=== PATIENT | female | born 1960 | race Caucasian/White ===

== ENCOUNTER 2018-07-23 13:37 | Emergency (ER) | payer OTHER ==
[~2018-07-23] VITALS: Ht 170.2 cm; Wt 67.2 kg
[2018-07-23 13:42] VITALS: BP 121/91
--- NOTE | 2018-07-23 13:54 | NUR ---
PATIENT AMBULATED TO BED 2 AT THIS TIME.
--- NOTE | 2018-07-23 14:02 | NUR ---
57 YO F BIB FAMILY W/ C/O LEFT SHOULDER PAIN X 1 MONTH. PT DENIES INJURY. SEEN AT [facility] [place] SAME THING WITHIN PAST 11 DAYS. DX TENDONITIS. WAS GIVEN FLEXERIL AND TRAMADOL STATES THEY ARE GONE. DENIES N/V/FEVER. SKIN IS INTACT, PINK/WARM/DRY; +CMS. AAOX4, PERRL, WITH EVEN AND STEADY GAIT; LUNGS CLEAR BL, BREATHING UNLABORED; PT STATES 10/10 PAIN AT THIS TIME; VSS; PATIENT POSITIONED FOR COMFORT; HOB ELEVATED; BEDRAILS UP X2; BED DOWN. HX SEASONAL ALLERGIES RX DENIES
[2018-07-23] MEDS ORDERED: KETOROLAC 60 MG/2 ML VIAL IM ONE (15:35)
[2018-07-23] MEDS ORDERED: CYCLOBENZAPRINE 10 MG TAB PO ONE (15:35)
[2018-07-23 16:00] VITALS: BP 121/91
--- NOTE | 2018-07-23 16:00 | NUR ---
Patient discharged with v/s stable. Written and verbal after care instructions given and explained. Patient alert, oriented and verbalized understanding of instructions. Ambulatory with steady gait. All questions addressed prior to discharge. ID band removed. Patient advised to follow up with PMD. Rx of FLEXIRIL given. Patient educated on indication of medication including possible reaction and side effects. Opportunity to ask questions provided and answered.
== END 2018-07-23 16:00 | disposition home or self-care (01) ==
LOC: MED 13:37
DX: M75.92 Shoulder lesion, unspecified, left shoulder (principal); Z88.6 Allergy status to analgesic agent; Z88.5 Allergy status to narcotic agent
CPT/HCPCS: 73020; 96372; 99283; J1885

== ENCOUNTER 2018-09-02 11:07 | Emergency (ER) | payer OTHER ==
[~2018-09-02] VITALS: Ht 170.2 cm; Wt 68.0 kg
--- NOTE | 2018-09-02 11:26 | NUR ---
Patient being evaluated by physician at bedside.
[2018-09-02 11:29] VITALS: BP 124/91
[2018-09-02] MEDS ORDERED: NACL 0.9% 1,000 ML IV ONE (11:30)
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
[2018-09-02 11:50] LABS: BASOPHILS # (AUTO) 0.1 K/uL (0.00-0.22); EOSINOPHILS % (AUTO) 0.4 % (0.0-4.0); HEMATOCRIT 43.8 % (36-48); HEMOGLOBIN 14.2 g/dL (12.0-16.0); LYMPHOCYTES % (AUTO) 29.5 % (20.5-51.1); MEAN CORPUSCULAR HEMOGLOBIN 27 pg (27-31); MEAN CORPUSCULAR HGB CONC 32 g/dL (33-37); MONOCYTES # (AUTO) 0.4 K/uL (0.8-1.0); MONOCYTES % (AUTO) 5.3 % (1.7-9.3); NEUTROPHILS # (AUTO) 4.2 K/uL (1.8-7.7); NEUTROPHILS % (AUTO) 63.8 % (42.2-75.2); PLATELET COUNT (AUTO) 268 K/uL (140-450); RED BLOOD CELL COUNT(AUTO) 5.22 MIL/uL (4.20-5.40); RED CELL DISTRIBUTION WIDTH 13.7 % (11.6-13.7); WHITE BLOOD COUNT (AUTO) 6.6 K/uL (4.8-10.8)
[2018-09-02 12:07] LABS: ALBUMIN 3.7 g/dL (3.4-5.0); ANION GAP 9.9 (8-16); ASPARTATE AMINOTRANSFERASE 12 U/L (15-37); CARBON DIOXIDE 29.6 mmol/L (21-32); CHLORIDE 104 mmol/L (98-107); CREATININE 0.7 mg/dL (0.6-1.3); GFR ARICAN-AMERICAN 110 mL/min (>90); GLUCOSE 109 mg/dL (74-106); POTASSIUM 3.5 mmol/L (3.5-5.1); SALICYLATE 3.2 mg/dL (2.8-20.0); SODIUM SERUM 140 mmol/L (136-145); TOTAL BILIRUBIN 0.3 mg/dL (0.0-1.0); UREA NITROGEN, BLOOD 10 mg/dL (7-18)
[2018-09-02 12:47] LABS: ACETAMINOPHEN < 0.5 ug/ml (10-30)
[2018-09-02 13:25] LABS: BILIRUBIN,URINE 1+ (NEGATIVE); BLOOD, URINE 1+ (NEGATIVE); COLOR,URINE YELLOW (YELLOW); LEUKOCYTE ESTERASE ,URINE NEGATIVE (NEGATIVE); NITRITE, URINE NEGATIVE (NEGATIVE); UGLUCOSE NEGATIVE (NEGATIVE)
--- NOTE | 2018-09-02 13:33 | NUR ---
patient sitting up in bed with no needs stated at this time.
[2018-09-02 13:34] LABS: BARBITURATE, URINE NEG. ng/ml (NEG <=200); BENZODIAZEPINE, URINE NEG. ng/mL (NEG <=200); CANNABINOID, URINE POS. ng/mL (NEG <=50); COCAINE, URINE NEG. ng/mL (NEG <=300); OPIATE, URINE NEG. ng/mL (NEG <=2000); PHENCYCLIDINE SCREEN,URINE NEG. ng/mL (NEG <=25)
[2018-09-02 13:35] LABS: APPEARANCE,URINE CLEAR (CLEAR)
[2018-09-02 13:36] LABS: RBC,URINE 0-5 /HPF (0-5); WBC,URINE 0-5 /HPF (0-5)
--- NOTE | 2018-09-02 14:25 | NUR ---
Patient in bed and comfortable at this time.
[2018-09-02 14:59] VITALS: BP 127/90
== END 2018-09-02 14:50 | disposition home or self-care (01) ==
LOC: MED 11:07
DX: F22 Delusional disorders (principal); F41.9 Anxiety disorder, unspecified; Z88.6 Allergy status to analgesic agent; Z88.5 Allergy status to narcotic agent
CPT/HCPCS: 36415; 80053; 80305; 81001; 82550; 85025; 99283; G0480; G0482; J7030

== ENCOUNTER 2018-09-21 10:01 | Emergency (ER) | payer OTHER ==
[~2018-09-21] VITALS: Ht 167.6 cm; Wt 64.9 kg
[2018-09-21 10:04] VITALS: BP 131/75
--- NOTE | 2018-09-21 10:09 | NUR ---
Patient ambulated to bed 11. RN evaluating patient at bedside.
--- NOTE | 2018-09-21 10:17 | NUR ---
Note undone in EDM - 09/21/18 at 1021 by [email or web address] PT BIB SELF TO THE ED WITH THE CHIEF C/O NUMBNESS ON LEFT ARM SINCE A MONTH AND LEFT EAR BLEEDING SINCE LAST NIGHT. MOVES ARM FREELY. + CIRCULATION, +SENSATION. NO ACTIVE BLEEDING FROM LEFT EAR AT THIS TIME. NO SWELLING OR REDNESS NOTED. DRY CRUSTS BLOOD NOTED INSIDE EAR. DENIES ANY PAIN AT THIS TIME. DENIES FEVER. DENIES ANY OTHER PROBLEM AT THIS TIME. ER AWARE.
--- NOTE | 2018-09-21 10:29 | NUR ---
PT BEING EVALUATED BY ER AT THIS TIME.
--- NOTE | 2018-09-21 10:44 | NUR ---
EKG BEING DONE.
--- NOTE | 2018-09-21 11:04 | NUR ---
Dr. Maciel re-evaluating patient at bedside.
[2018-09-21 11:44] VITALS: BP 122/68
--- NOTE | 2018-09-21 11:45 | NUR ---
Patient discharged with v/s stable. Written and verbal after care instructions given and explained. Patient verbalized understanding. Ambulatory with steady gait. All questions addressed prior to discharge. Advised to follow up with PMD.
== END 2018-09-21 11:45 | disposition home or self-care (01) ==
LOC: MED 10:01
DX: S00.412A Abrasion of left ear, initial encounter (principal); M79.602 Pain in left arm; J45.909 Unspecified asthma, uncomplicated; F41.9 Anxiety disorder, unspecified; Z88.6 Allergy status to analgesic agent; Z88.5 Allergy status to narcotic agent; X58.XXXA Exposure to other specified factors, initial encounter; Y93.89 Activity, other specified; Y92.89 Other specified places as the place of occurrence of the external cause; Y99.8 Other external cause status
CPT/HCPCS: 93005; 99283

== ENCOUNTER 2018-10-23 16:16 | Emergency (ER) | payer OTHER ==
[~2018-10-23] VITALS: Ht 165.1 cm; Wt 67.6 kg
[2018-10-23 16:20] VITALS: BP 139/64
--- NOTE | 2018-10-23 16:33 | NUR ---
PATIENT AMBULATED TO BED #10
[2018-10-23] MEDS ORDERED: NACL 0.9% 1,500 ML IV SCH (16:47)
[2018-10-23] MEDS ORDERED: methylPREDNISolone SS 125 MG/2 ML VIAL IVP ONE (16:50)
[2018-10-23] MEDS ORDERED: diphenhydrAMINE 50 MG/ML VIAL IVP ONE (16:50)
[2018-10-23] MEDS ORDERED: LEVOFLOXACIN 500 MG TAB PO ONE (16:50)
[2018-10-23] MEDS ORDERED: ALBUTEROL SULFATE/IPRATROPIU 3 ML SOL IH ONE (16:50)
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
--- NOTE | 2018-10-23 17:10 | NUR ---
Breathing treatment administered at bedside by respiratory therapist.
[2018-10-23 17:33] LABS: BASOPHILS % (AUTO) 0.4 % (0.0-2.0); EOSINOPHILS # (AUTO) 0.2 K/uL (0-0.4); EOSINOPHILS % (AUTO) 2.1 % (0.0-4.0); HEMATOCRIT 44.9 % (36-48); HEMOGLOBIN 14.8 g/dL (12.0-16.0); LYMPHOCYTES % (AUTO) 25.2 % (20.5-51.1); MEAN CORPUSCULAR HEMOGLOBIN 28 pg (27-31); MEAN CORPUSCULAR HGB CONC 33 g/dL (33-37); MEAN CORPUSCULAR VOLUME 85.2 fL (80-94); MONOCYTES # (AUTO) 0.4 K/uL (0.8-1.0); MONOCYTES % (AUTO) 4.6 % (1.7-9.3); NEUTROPHILS # (AUTO) 5.5 K/uL (1.8-7.7); NEUTROPHILS % (AUTO) 67.7 % (42.2-75.2); PLATELET COUNT (AUTO) 271 K/uL (140-450); RED BLOOD CELL COUNT(AUTO) 5.27 MIL/uL (4.20-5.40); RED CELL DISTRIBUTION WIDTH 13.9 % (11.6-13.7); WHITE BLOOD COUNT (AUTO) 8.1 K/uL (4.8-10.8)
--- NOTE | 2018-10-23 17:42 | NUR ---
bench repair technician at bedside.
[2018-10-23 17:55] LABS: MAGNESIUM 2.1 mg/dL (1.8-2.4)
[2018-10-23 17:56] LABS: ANION GAP 12.7 (8-16); CARBON DIOXIDE 28.8 mmol/L (21-32); CREATININE 0.7 mg/dL (0.6-1.3); POTASSIUM 3.5 mmol/L (3.5-5.1)
[2018-10-23 18:02] LABS: ALBUMIN 3.8 g/dL (3.4-5.0); TOTAL BILIRUBIN 0.2 mg/dL (0.0-1.0)
--- NOTE | 2018-10-23 18:03 | NUR ---
CONTINUES TO WAIT FOR ALL DIAGNOSTIC RESULTS---DENIES CP OR SOB AT THIS TIME.
[2018-10-23 18:24] LABS: APPEARANCE,URINE CLEAR (CLEAR); BILIRUBIN,URINE NEGATIVE (NEGATIVE); BLOOD, URINE 1+ (NEGATIVE); COLOR,URINE YELLOW (YELLOW); LEUKOCYTE ESTERASE ,URINE NEGATIVE (NEGATIVE); NITRITE, URINE NEGATIVE (NEGATIVE); UGLUCOSE NEGATIVE (NEGATIVE)
[2018-10-23 18:30] LABS: WBC,URINE 0-5 /HPF (0-5)
[2018-10-23 18:47] LABS: BARBITURATE, URINE NEG. ng/ml (NEG <=200); BENZODIAZEPINE, URINE NEG. ng/mL (NEG <=200); CANNABINOID, URINE POS. ng/mL (NEG <=50); COCAINE, URINE NEG. ng/mL (NEG <=300); OPIATE, URINE NEG. ng/mL (NEG <=2000); PHENCYCLIDINE SCREEN,URINE NEG. ng/mL (NEG <=25)
[2018-10-23 18:58] VITALS: BP 115/59
--- NOTE | 2018-10-23 18:59 | NUR ---
Patient discharged with v/s stable. Written and verbal after care instructions given and explained. Patient alert, oriented and verbalized understanding of instructions. Ambulatory with steady gait. All questions addressed prior to discharge. ID band removed. Patient advised to follow up with PMD. Rx of PROMETHAZINE/AZITHROMYCIN given. Patient educated on indication of medication including possible reaction and side effects. Opportunity to ask questions provided and answered.
== END 2018-10-23 18:57 | disposition home or self-care (01) ==
LOC: MED 16:16
DX: J45.909 Unspecified asthma, uncomplicated (principal); F12.10 Cannabis abuse, uncomplicated; F20.9 Schizophrenia, unspecified; Z88.5 Allergy status to narcotic agent; Z88.6 Allergy status to analgesic agent
CPT/HCPCS: 36415; 36600; 71045; 80053; 80305; 81001; 81025; 82803; 83605; 83735; 83880; 84484; 85025; 85379; 87040; 87086; 93005; 94640; 96374; 96375; 99284; G0482; J1200; J2930; J7030; J7620; Q0092

== ENCOUNTER 2020-04-16 08:28 | Emergency (ER) | payer OTHER ==
[~2020-04-16] VITALS: Ht 167.6 cm; Wt 59.0 kg
[2020-04-16 08:34] VITALS: BP 122/76
--- NOTE | 2020-04-16 08:43 | NUR ---
Patient ambulated to bed 2. RN evaluating patient at bedside.
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
--- NOTE | 2020-04-16 08:53 | NUR ---
DR SLAUGHTER AT BEDSIDE EVALUATING
--- NOTE | 2020-04-16 08:55 | NUR ---
PT TO CT SCAN [facility] .
--- NOTE | 2020-04-16 09:02 | NUR ---
PT BACK FROM [facility] VIA WHEEL CHAIR.
[2020-04-16] MEDS ORDERED: MECLIZINE 25 MG TAB PO ONE (09:05)
--- NOTE | 2020-04-16 09:25 | NUR ---
pt comfortable in bed with side rail up x1 and lock to lowest position .
--- NOTE | 2020-04-16 09:36 | NUR ---
dr benitez at bedside reevaluating pt.
--- NOTE | 2020-04-16 09:47 | NUR ---
gave sandwich and apple juice to pt . pt in bed still eating .
[2020-04-16 10:07] VITALS: BP 122/76
--- NOTE | 2020-04-16 10:08 | NUR ---
Patient discharged with v/s stable. Written and verbal after care instructions given and explained regarding vertigo. Patient alert, oriented and verbalized understanding of instructions. Ambulatory with steady gait. All questions addressed prior to discharge. ID band removed. Patient advised to follow up with PMD. Rx of meclizine given. Patient educated on indication of medication including possible reaction and side effects. Opportunity to ask questions provided and answered.
== END 2020-04-16 10:08 | disposition home or self-care (01) ==
LOC: MED 08:28
DX: H81.10 Benign paroxysmal vertigo, unspecified ear (principal); F17.200 Nicotine dependence, unspecified, uncomplicated; J45.909 Unspecified asthma, uncomplicated; Z88.5 Allergy status to narcotic agent; Z88.6 Allergy status to analgesic agent
CPT/HCPCS: 70450; 99284; J8597

== ENCOUNTER 2021-05-18 10:38 | Emergency (ER) | payer OTHER ==
[~2021-05-18] VITALS: Ht 162.6 cm; Wt 67.6 kg
[2021-05-18 10:43] VITALS: BP 147/84
--- NOTE | 2021-05-18 10:54 | NUR ---
PT AMBULATED TO ER BED 2
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
--- NOTE | 2021-05-18 12:00 | NUR ---
ERMD IN ROOM ASSESSING PT.
--- NOTE | 2021-05-18 12:09 | NUR ---
PT REFUSING LABS OR ANY TESTING DONE AT THIS TIME. PT STATES "I AM JUST GOING TO GO HOME, I DONT WANT ANYTHING DONE." ERMD MADE AWARE. ERMD SPOKE WITH PT, PT STATES SHE STILL WILL BE LEAVING.
--- NOTE | 2021-05-18 12:20 | NUR ---
Patient discharged with v/s stable. Written and verbal after care instructionsABOUT VARICOSE VEINS given and explained. Patient verbalized understanding. Ambulatory with steady gait. All questions addressed prior to discharge. Advised to follow up with PMD.
== END 2021-05-18 12:20 | disposition home or self-care (01) ==
LOC: MED 10:38
DX: L20.9 Atopic dermatitis, unspecified (principal); R10.9 Unspecified abdominal pain; G89.29 Other chronic pain; J45.909 Unspecified asthma, uncomplicated; Z88.5 Allergy status to narcotic agent; Z88.8 Allergy status to other drugs, medicaments and biological substances
CPT/HCPCS: 99281

== ENCOUNTER 2022-07-01 12:16 | Emergency (ER) | payer OTHER ==
[~2022-07-01] VITALS: Ht 167.6 cm; Wt 70.3 kg
--- NOTE | 2022-07-01 12:26 | NUR ---
CALLED IN LOBBY, NO ANSWER
[2022-07-01 12:46] VITALS: BP 115/59
--- NOTE | 2022-07-01 12:49 | NUR ---
PT AMBULATED TO LOBBY
--- NOTE | 2022-07-01 13:16 | NUR ---
61/F WALKED IN C/O LEFT SIDED NECK PAIN RADIATING TO LEFT SHOULDER ONSET 06/15/22. PT REPORTS LIFTING HEAVY OBJECT BACK IN 06/15/22. AAO4, AMBULATORY, VITALS STABLE, NO ACUTE DISTRESS NOTED PMH: DEPRESSION, ANXIETY
[2022-07-01] MEDS ORDERED: KETOROLAC 30 MG/ML VIAL IM ONE (13:30)
--- NOTE | 2022-07-01 13:44 | NUR ---
PT PLACED IN LEFT SHOULDER SLING
[2022-07-01] MEDS ORDERED: IBUP-2213 PO (13:58)
[2022-07-01] MEDS ORDERED: CYCL-711 PO (13:58)
[2022-07-01] MEDS ORDERED: LID5T TP (13:58)
--- NOTE | 2022-07-01 14:44 | NUR ---
#1 call: no answer in lobby / outside ER lobby.
--- NOTE | 2022-07-01 14:49 | NUR ---
#2: No answer in lobby/outside ER lobby
--- NOTE | 2022-07-01 15:15 | NUR ---
LEFT PRIOR TO DC
== END 2022-07-01 15:15 | disposition home or self-care (01) ==
LOC: MED 12:16
DX: S16.1XXA Strain of muscle, fascia and tendon at neck level, initial encounter (principal); M25.512 Pain in left shoulder; F41.9 Anxiety disorder, unspecified; F32.9 Major depressive disorder, single episode, unspecified; J45.909 Unspecified asthma, uncomplicated; Z88.6 Allergy status to analgesic agent; Z88.5 Allergy status to narcotic agent; Z79.899 Other long term (current) drug therapy; X58.XXXA Exposure to other specified factors, initial encounter; Y93.89 Activity, other specified; Y92.89 Other specified places as the place of occurrence of the external cause; Y99.8 Other external cause status
CPT/HCPCS: 96372; 99283; J1885

== ENCOUNTER 2022-08-06 16:38 | Emergency (ER) | payer OTHER ==
[~2022-08-06] VITALS: Ht 167.6 cm; Wt 74.8 kg
[~2022-08-06 16:38] MED LIST: CYCL-711 PO; IBUP-2213 PO; LID5T TP
[2022-08-06 17:05] VITALS: BP 142/68
--- NOTE | 2022-08-06 17:08 | NUR ---
PT WHEELCHAIR ASSISTED TO BED 12
[2022-08-06] MEDS: ONDANSETRON 4 MG/2 ML VIAL IVP ONE (17:25)
[2022-08-06] MEDS: NACL 0.9% 1,000 ML IV ONE (17:25)
[2022-08-06] MEDS: diphenhydrAMINE 50 MG/ML VIAL IVP ONE (17:25)
--- NOTE | 2022-08-06 17:30 | NUR ---
61/F WHEELCHAIR ASSISTED C/O DIZZINESS ONSET TODAY. PT REPORTS TAKING ANTIVERT 12.5MG X1 TODAY WITH RELIEF. STATES DIZZINESS HAS SUBSIDED BUT NOW C/O NEW ONSET NAUSEA AND WEAKNESS. DENIES FALL OR INJURY. AAO4, AMBULATORY, VITALS STABLE, NO ACUTE DISTRESS NOTED PMH: VERTIGO, ANXIETY
[2022-08-06 17:32] LABS: BASOPHILS % (AUTO) 0.5 % (0.0-2.0); EOSINOPHILS # (AUTO) 0.1 K/uL (0-0.4); EOSINOPHILS % (AUTO) 1.9 % (0.0-4.0); HEMATOCRIT 40.2 % (36-48); HEMOGLOBIN 13.3 g/dL (12.0-16.0); LYMPHOCYTES # (AUTO) 1.5 K/uL (2.5-16.5); LYMPHOCYTES % (AUTO) 18.8 % (20.5-51.1); MEAN CORPUSCULAR HEMOGLOBIN 28 pg (27-31); MEAN CORPUSCULAR HGB CONC 33 g/dL (33-37); MEAN CORPUSCULAR VOLUME 83.3 fL (80-94); MONOCYTES # (AUTO) 0.3 K/uL (0.8-1.0); MONOCYTES % (AUTO) 4.3 % (1.7-9.3); NEUTROPHILS # (AUTO) 5.8 K/uL (1.8-7.7); NEUTROPHILS % (AUTO) 74.5 % (42.2-75.2); PLATELET COUNT (AUTO) 271 K/uL (140-450); RED BLOOD CELL COUNT(AUTO) 4.82 MIL/uL (4.20-5.40); RED CELL DISTRIBUTION WIDTH 13.5 % (11.6-13.7); WHITE BLOOD COUNT (AUTO) 7.8 K/uL (4.8-10.8)
[2022-08-06 17:55] LABS: ANION GAP 11.6 (8-16); ASPARTATE AMINOTRANSFERASE 13 U/L (15-37); CARBON DIOXIDE 28.3 mmol/L (21-32); CHLORIDE 103 mmol/L (98-107); CREATININE 0.8 mg/dL (0.6-1.3); GFR ARICAN-AMERICAN 93 mL/min (>90); GLUCOSE 158 mg/dL (74-106); POTASSIUM 3.9 mmol/L (3.5-5.1); SODIUM SERUM 139 mmol/L (136-145); TOTAL BILIRUBIN 0.1 mg/dL (0.0-1.0); UREA NITROGEN, BLOOD 14 mg/dL (7-18)
--- NOTE | 2022-08-06 19:20 | NUR ---
GAVE REPORT TO JOSÉ ANTONIO BLANCAS.
--- NOTE | 2022-08-06 19:30 | NUR ---
Patient resting in bed, Alert, chest rise and fall symmetrical, no s/s of distress or c/o of pain.
[2022-08-06 20:03] VITALS: BP 121/57
== END 2022-08-06 20:05 | disposition home or self-care (01) ==
LOC: MED 16:38
DX: R53.1 Weakness (principal); R42 Dizziness and giddiness; J45.909 Unspecified asthma, uncomplicated; F41.9 Anxiety disorder, unspecified; F32.9 Major depressive disorder, single episode, unspecified; Z88.5 Allergy status to narcotic agent; Z88.6 Allergy status to analgesic agent; Z79.899 Other long term (current) drug therapy
CPT/HCPCS: 36415; 70450; 80053; 84484; 85025; 93005; 96361; 96374; 96375; 99285; J1200; J2405

== ENCOUNTER 2022-08-10 09:04 | Emergency (ER) | payer OTHER ==
[~2022-08-10] VITALS: Ht 167.6 cm; Wt 70.3 kg
[2022-08-10 09:25] VITALS: BP 154/70
--- NOTE | 2022-08-10 10:01 | NUR ---
61/f walkedi n c/o elevated bp readings at home x3days. pt states bp reads 120-150 systolic accompanied by abd discomfort at this time. denies nvd. aao4, ambulatory, vitals stable. pmh: hld, prediabetic allergy: norco med: hydroxyzine, cyclobenzaprine, meclizine, carisoprodol
[2022-08-10] MEDS ORDERED: CYCL-711 PO (10:02)
== END 2022-08-10 10:05 | disposition home or self-care (01) ==
LOC: MED 09:04
DX: R03.0 Elevated blood-pressure reading, without diagnosis of hypertension (principal); R05.9 Cough, unspecified; J45.909 Unspecified asthma, uncomplicated; Z88.5 Allergy status to narcotic agent
CPT/HCPCS: 99283

== ENCOUNTER 2022-10-22 08:45 | Emergency (ER) | payer OTHER ==
[~2022-10-22] VITALS: Ht 167.6 cm; Wt 68.9 kg
[2022-10-22 08:59] VITALS: BP 121/80
--- NOTE | 2022-10-22 09:13 | NUR ---
PT C/O SHOULDER PAIN RADIATING TO NECK AND ARM X 7DYS. 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 PENDING ON MD ANTHONY. SAFETY MAINTAINED.
[2022-10-22] MEDS ORDERED: KETOROLAC 60 MG/2 ML VIAL IM ONE (09:25)
[2022-10-22] MEDS ORDERED: IBUP-2213 PO (10:02)
[2022-10-22] MEDS ORDERED: ACET-8905 PO (10:02)
[2022-10-22] MEDS ORDERED: ONDA8TAB87 PO (10:02)
[2022-10-22 10:13] VITALS: BP 109/76
--- NOTE | 2022-10-22 10:15 | NUR ---
Patient discharged with v/s stable. Written and verbal after care instructions given and explained. Patient alert, oriented and verbalized understanding of instructions. Ambulatory with steady gait. All questions addressed prior to discharge. ID band removed. Patient advised to follow up with PMD. Rx of NORCO,ZOFARN,IBUPROFEN given. Patient educated on indication of medication including possible reaction and side effects. Opportunity to ask questions provided and answered.
--- NOTE | 2022-10-22 10:18 | NUR ---
The patient's care was reviewed and supervised by Niles 05 AKASH, RN.
== END 2022-10-22 10:13 | disposition home or self-care (01) ==
LOC: MED 08:45
DX: M25.511 Pain in right shoulder (principal); F17.200 Nicotine dependence, unspecified, uncomplicated; Z98.890 Other specified postprocedural states; Z79.899 Other long term (current) drug therapy; Z79.1 Long term (current) use of non-steroidal anti-inflammatories (NSAID); Z88.5 Allergy status to narcotic agent; Z88.6 Allergy status to analgesic agent
CPT/HCPCS: 96372; 99283; J1885

== ENCOUNTER 2023-04-25 08:58 | Emergency (ER) | payer OTHER ==
[~2023-04-25] VITALS: Ht 167.6 cm; Wt 72.1 kg
[~2023-04-25 08:58] MED LIST changes: +ACET-8905 PO; +ONDA8TAB87 PO
[2023-04-25 09:06] VITALS: BP 127/67; PULSE 73; RESP 14; TEMP 98.3; O2SAT 98
[2023-04-25] MEDS ORDERED: IBUPROFEN 600 MG TAB PO ONE (09:55)
[2023-04-25] MEDS ORDERED: DICL100G32 TP (11:13)
[2023-04-25 11:17] VITALS: BP 127/67; PULSE 73; RESP 14; TEMP 98.3; O2SAT 98
== END 2023-04-25 11:17 | disposition home or self-care (01) ==
LOC: MED 08:58
DX: M25.521 Pain in right elbow (principal); Z88.8 Allergy status to other drugs, medicaments and biological substances; Z79.899 Other long term (current) drug therapy
CPT/HCPCS: 73080; 99283

== ENCOUNTER 2023-07-01 13:32 | Emergency (ER) | payer OTHER ==
[~2023-07-01] VITALS: Ht 167.6 cm; Wt 72.6 kg
[~2023-07-01 13:32] MED LIST changes: +DICL100G32 TP
[2023-07-01 13:45] VITALS: BP 130/75; PULSE 71; RESP 18; TEMP 98.1; O2SAT 98
[2023-07-01 13:49] VITALS: BP 130/75; PULSE 71; RESP 18; TEMP 98.1; O2SAT 98
[2023-07-01] MEDS ORDERED: IBUP-2213 PO (14:03)
[2023-07-01] MEDS ORDERED: AMOX1TAB8 PO (14:03)
== END 2023-07-01 14:25 | disposition home or self-care (01) ==
LOC: MED 13:32
DX: M26.602 Left temporomandibular joint disorder, unspecified (principal); R03.0 Elevated blood-pressure reading, without diagnosis of hypertension; Z88.5 Allergy status to narcotic agent; Z79.899 Other long term (current) drug therapy
CPT/HCPCS: 99283